=== PATIENT | female | born 1965 | race Caucasian/White ===

== ENCOUNTER → 2024-08-23 06:22 | Day surgery (SDC) | payer BC, SELFPAY | LOC: GI 06:22 | PROVIDERS: ATTENDING PHYSICIAN Internal Medicine Gastroenterology | DX: Z12.11 Encounter for screening for malignant neoplasm of colon (principal); K64.8 Other hemorrhoids; Z86.010 Personal history of colon polyps | CPT/HCPCS: G0105 ==

== ENCOUNTER 2025-01-09 16:16 | Emergency (ER) | payer BC, SELFPAY ==
[2025-01-09 16:30] VITALS: BP 147/94
--- NOTE | 2025-01-09 17:31 | ED.GENMED ---
History of Present Illness
General
Chief Complaint: Nasal Problem
Time Seen by Provider: 01/09/25 17:31
History of Present Illness
History of Present Illness:
TIME OF INITIAL ENCOUNTER: 5:40 PM
HPI: She is concerned for CSF leak. 5wks of HART's that improve when she lays flat, some vague dizziness, and leakage of clear fluid from the right nostril. Over the past 24hrs, leakage has 'become nonstop'. 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
states she collected about 4mL of fluid, froze it, and is planning on asking one of the doctors there to order a beta-2 transferrin test.
EXAM:
GENERAL: Well appearing in no distress, she is well-appearing
HEENT: Moist oral mucosa, there is a rather brisk drip of clear fluid from R nostril (1 drop every 5 seconds or so)
CARDIOVASCULAR: No murmurs, normal heart rate, regular rhythm, No chest wall tenderness
PULMONARY: No respiratory distress, breath sounds are clear and equal
ABDOMEN: Soft with no peritoneal signs, no tenderness
NEUROLOGIC: Excellent strength all extremities, no coordination deficits, the patient has no abnormal neurologic findings on exam
PSYCHIATRIC: Appropriate mental status, normal insight and judgement
EXTREMITIES: Nontender, no edema, moves all extremities equally
SKIN: No rash, no lesions
NUMBER AND COMPLEXITY OF PROBLEMS ADDRESSED AT THE ENCOUNTER
� Chronic conditions affecting care: Is a smoker, psoriatic arthritis, anxiety/depression
� Acute Exacerbation and/or Progression of Chronic Illness: This is an acute
� Differential Diagnosis includes: CSF leak, encephalocele, mucocele, meningocele
AMOUNT AND/OR COMPLEXITY OF DATA TO BE REVIEWED AND ANALYZED
� I performed an independent evaluation of and my interpretation is:
EKG:
CT: CT imaging of the head and facial bones reviewed, I also reviewed these findings with Dr. Galvan, neurosurgery. There is concern for increased fluid near the ethmoid.
X-rays:
Laboratory Studies: Beta-2 transferrin pending�lab indicates that it will be at least another couple days and will not be even sent out until tomorrow
Other:
� Review of other/old records: The patient was admitted here with choledocholithiasis 1 year ago and had a cholecystectomy at that time
� Clinical information was obtained by an independent historian: None needed
� Prescriptions/Medications Considered but not given:
� Further testing considered but not performed:
RISK OF COMPLICATIONS AND/OR MORBIDITY OR MORTALITY OF PATIENT MANAGEMENT
� Social determinants of health affecting care: The patient works in the healthcare field, lives at home and recently adopted kittens and needs to attend to them as she cannot find anybody else to care for them
� Discussion with other providers: See below
� Escalation of care including admission/observation vs risk of discharge considered: Given the patient's concern for CSF leak, I notified Dr. Galvan who recommended CT imaging including thin cuts through the facial bones.
Abnormality noted at the ethmoid. I also discussed case with Dr. Hill. Ultimately, both ENT and neurosurgery here recommended transfer to a tertiary care facility. They recommended [facility]. I spoke to Dr. Rice At [facility] who recommends
patient be transferred to [facility]'s emergency department. I spoke to Dr. Bucio who is aware that the patient will be coming to their emergency department. I recommended transfer by ambulance as usual however the patient adamantly refused
transfer by ambulance (the kittens). She will take care of them and then immediately go down to [facility] for further management. We did give a copy of her CT results and her CT readings. I also notified both ENT and neurosurgery here after the
official reading by radiology and they still both recommend transfer to [facility].
ANY OTHER UPDATES:
I reassessed patient multiple times and had numerous discussions with consultants.
Phy Exam
Physical Exam
Physical Exam:
See HPI
Course
Orders/Labs/Results
Orders:
Orders
01/09/25 17:32
CT Head W/o Iv Contrast Urgent
Comment:
Reason For Exam: new HAs, ?CSF leak (clear nasal d/c)
01/09/25 17:45
CT Facial Bones W/o Iv Contras Urgent
Comment:
Reason For Exam: eval for CSF leak, THIN CUTS PLEASE per Dr. Galvan
01/09/25 18:43
Ibuprofen [Motrin] 800 mg .ROUTE .STK-MED ONE
01/09/25 18:44
Ibuprofen [Motrin] 800 mg PO NOW STA
01/09/25 19:16
Add On- LAB Urgent
Tests Added?: beta 2 transferrin (CSF)
Vital Signs
Initial and Last Documented VS:
Initial Vital Signs
Temp Pulse Resp BP Pulse Ox
37.1 C 107 18 147/94 98
01/09/25 16:30 01/09/25 16:30 01/09/25 16:30 01/09/25 16:30 01/09/25 16:30
Last Documented Vital Signs
Temp Pulse Resp BP Pulse Ox
37.1 C 107 18 143/91 95
01/09/25 16:30 01/09/25 16:30 01/09/25 16:30 01/09/25 18:47 01/09/25 18:48
*Critical Care Note
Total Time (30-74mins, 75-104mins- exclusive of procedures): Not Applicable
ED Attending Note
-
Portions of this chart may have been created with voice recognition software.� Occasional wrong word or��sound alike� substitutions may have occurred due to the inherent limitations of voice recognition software.
Discharge Plan
Departure
Patient Disposition: Acute Care Hospital
Date of Disposition: 01/09/25
Time of Disposition: 19:55
Discharge Problem:
Cerebrospinal fluid leak
Prescriptions:
No Action
magnesium oxide 420 mg Tablet
420 mg PO DAILY
Theragen Tablet
1 tab PO DAILY
escitalopram oxalate [Lexapro] 10 mg Tablet
10 mg PO DAILY
Referrals:
UNKNOWN - PT DOES,NOT KNOW [Family Provider] -
Activity Restrictions/Additional Instructions:
I initially spoke to our neurosurgeon (Dr. Galvan) on-call who reviewed your images. She noted a fluid collection at the ethmoid sinus. I then spoke to an ENT doctor. We still had concern for the possibility of CSF leak. We did obtain fluid
tonight from your nose and send it to the lab�a beta-2 transferrin level�the lab here states it would be at least a couple days for it to come back. Neurosurgery and ENT recommended transfer to a higher level of care such as [facility]. I spoke to
Dwayne (neurosurgeon) who wanted you to be transferred to the ER at [facility]-� I spoke to an ER doctor down there named Dr. Bucio. You very likely would still have to wait as they are very busy tonight. You have refused ambulance
transfer. You must go down to the ER at [facility] as soon as possible. Take your discs with you.
Hospital Transfer
Other hospital: [facility] ED
I certify that the patient requires transfer: Yes
Discussed case with accepting physician: Dr. Rice (neurosurg) AND Dr. Bucio (ER)
Reason for transfer: higher level of care and specialties available
Interventions
Interventions:
*Risk Screen - Suicide Last Done: 01/09/25 16:30
*General Assessment Last Done: 01/09/25 16:30
*Neglect/Abuse Screening Last Done: 01/09/25 16:30
*ED COVID-19 Vaccine History Last Done: 01/09/25 16:30
*Nursing Disposition Last Done: 01/09/25 20:22
ED-EENT Assessment Last Done: 01/09/25 17:32
Discharge Date and Time
Discharge Date/Time: 01/09/25 20:25
Print Language: TURKISH
[2025-01-09] MEDS: MOTRIN 800 MG PO (18:44)
[2025-01-09 18:47] VITALS: BP 143/91
== END 2025-01-09 20:25 | disposition short-term general hospital (02) ==
LOC: EMR 16:16
PROVIDERS: EMERGENCY PHYSICIAN Emergency Medicine
DX: G96.00 Cerebrospinal fluid leak, unspecified (principal); R51.9 Headache, unspecified; R42 Dizziness and giddiness; R09.82 Postnasal drip; F41.9 Anxiety disorder, unspecified; F32.A Depression, unspecified; F17.200 Nicotine dependence, unspecified, uncomplicated; L40.50 Arthropathic psoriasis, unspecified; Z90.49 Acquired absence of other specified parts of digestive tract
CPT/HCPCS: 99284; 70450; 70486